=== PATIENT | male | born 1945 | race Caucasian/White ===

== ENCOUNTER 2017-08-11 20:34 | Emergency (ER) | payer MEDICARE, BC ==
[2017-08-11 20:52] VITALS: BP 115/66
[2017-08-11] MEDS ORDERED: Lidocaine 1%* 5 ML VIAL INJ ONE (22:22)
--- NOTE | 2017-08-11 22:29 | ED ---
Laceration/Wound HPI - HPI Summary HPI Summary: 72M presents with laceration to right hand. He states felt like finger might have dislocated. He denies any numbness or tingling. He believes his tetanus is up to date. He is not on blood thinners. He is right handed. He tripped on the [employer] [place] and fell on right hand and has abrasion to chin. He denies any headache or head injury. He denies any neck pain. He denies any loose teeth. He has full ROM of jaw. He has full ROM of hand. He has laceration on palm of right hand. - History of Current Complaint Stated Complaint: RT PINKY INJURY Time Seen by Provider: 08/11/17 21:15 Pain Intensity: 4 - Allergy/Home Medications Allergies/Adverse Reactions: Allergies Allergy/AdvReac Type Severity Reaction Status Date / Time Sulfamethoxazole Allergy Unknown Verified 08/11/17 20:52 w/Trimethoprim Reaction [From Bactrim] Details PMH/Surg Hx/FS Hx/Imm Hx Endocrine/Hematology History: Denies: Hx Anticoagulant Therapy, Hx Diabetes Cardiovascular History: Reports: Hx Hypertension Infectious Disease History: No Infectious Disease History: Denies: Traveled Outside the [place] in Last 30 Days - Family History Known Family History: Positive: Hypertension - Social History Alcohol Use: Occasionally Substance Use Type: Reports: None Smoking Status (MU): Unknown if Ever Smoked Review of Systems Negative: Fever Negative: Chest Pain Negative: Shortness Of Breath Positive: Other - right hand laceration All Other Systems Reviewed And Are Negative: Yes Physical Exam Triage Information Reviewed: Yes Vital Signs On Initial Exam: Initial Vitals Temp Pulse Resp BP Pulse Ox 98.8 F 80 18 115/66 96 08/11/17 20:45 08/11/17 20:45 08/11/17 20:45 08/11/17 20:45 08/11/17 20:45 Vital Signs Reviewed: Yes Appearance: Positive: Well-Appearing Skin: Positive: Warm, Dry, Other Head/Face: Positive: Normal Head/Face Inspection Eyes: Positive: Normal, EOMI, SAUL, Conjunctiva Clear ENT: Positive: Normal ENT inspection, Pharynx normal, TMs normal Dental: Positive: Other - full ROM jaw. Negative: Dental Fracture @ Respiratory/Lung Sounds: Positive: Clear to Auscultation, Breath Sounds Present Cardiovascular: Positive: Normal, RRR Abdomen Description: Positive: Nontender, Soft Bowel Sounds: Positive: Present Musculoskeletal: Positive: Strength/ROM Intact - right hand, Other - good pulses , sensation grossly intact Neurological: Positive: Sensory/Motor Intact, Alert, Oriented to Person Place, Time, CN Intact II-III Procedures - Laceration/Wound Repair 1 Location: Other - right hand laceration Description: Linear Length, Depth and Shape: 3cm by 1/2cm Irrigated w/ Saline (ccs): 100 Closure: Single Layer Number of Sutures: 4 Sterile Dressing Applied?: Yes - telfa, foam finger splint and srikanth Diagnostics - Vital Signs Vital Signs Temp Pulse Resp BP Pulse Ox 08/11/17 20:45 98.8 F 80 18 115/66 96 - Laboratory Lab Statement: Any lab studies that have been ordered have been reviewed, and results considered in the medical decision making process. - Radiology hand Xray Interpretation: No Acute Changes Radiology Interpretation Completed By: Radiologist Laceration Repair Course/Dx - Course Course Of Treatment: 72M presents with laceration to right hand. He states felt like finger might have dislocated. He denies any numbness or tingling. He believes his tetanus is up to date. He is not on blood thinners. He is right handed. He tripped on the [place] court and fell on right hand and has abrasion to chin. He denies any headache or head injury. He denies any neck pain. He denies any loose teeth. He has full ROM of jaw. He has full ROM of hand. He has laceration on palm of right hand. on exam has 3cm by 1/2cm laceration of right palm. placed 4 suture in area after cleaning, normal xray. no evidence of tendon damage. placed pinky in splint so that laceration does not open. patient understand and agrees with plan. - Differential Dx Differental Diagnoses: Abrasion, Avulsion, Laceration - Clinical Impression Provider Diagnoses: Laceration of right hand Discharge - Discharge Plan Condition: Good Disposition: HOME Patient Education Materials: Care For Your Stitches (ED) Referrals: Elvin Leavitt MD [Primary Care Provider] - Peter Otoole MD [Medical Doctor] - Additional Instructions: Keep area in splint, change dressing once a day Keep area clean and dry for 24 hours Take Tylenol or ibuprofen for pain every 6 hours Return to ED or primary for suture removal in 10-14 days Follow up with ortho if no improvement Return to ED if develop signs of infection such as fever, spreading redness, or pus formation
--- NOTE | 2017-08-12 07:37 | RAD ---
INDICATION: Right hand injury. TECHNIQUE: 4 views of the right hand were obtained. FINDINGS: The bones are normal alignment. Soft tissue swelling is noted along the medial aspect of the hand adjacent to the fifth metacarpal. No fracture is seen. Joint spaces appear maintained. IMPRESSION: SOFT TISSUE INJURY, NO FRACTURE IS SEEN.
== END 2017-08-11 23:08 | disposition home or self-care (01) ==
LOC: ED 20:34
DX: S61.411A Laceration without foreign body of right hand, initial encounter (principal); W01.0XXA Fall on same level from slipping, tripping and stumbling without subsequent striking against object, initial encounter; Y92.312 Tennis court as the place of occurrence of the external cause; I10 Essential (primary) hypertension
CPT/HCPCS: 12002; 99282

== ENCOUNTER 2019-08-30 14:39 | Emergency (ER) | payer MEDICARE, BC ==
[2019-08-30 14:55] VITALS: BP 163/78
--- NOTE | 2019-08-30 15:15 | UC ---
Abdominal Pain Male HPI - HPI Summary HPI Summary: 74-year-old male comes in with a chief complaint of right lower quadrant abdominal pain. Patient woke up this morning at 7 AM with a 6 out of 10 right lower quadrant abdominal pain. He has had no appetite since that time. No fevers measured. Pain is decreased now to about a 2 out of 10 but is still present. Reports normal urination this morning. Denies any flank pain. No prior abdominal surgeries other than a inguinal hernia repair years ago. Head normally formed stools this morning although there are smaller than usual. About 2 days ago he had intermittent right lower quadrant pain that came and went on its own. - History of Current Complaint Chief Complaint: UCAbdominalPain Stated Complaint: ABDOMINAL PAIN Time Seen by Provider: 08/30/19 14:51 Pain Intensity: 2 - Allergies/Home Medications Allergies/Adverse Reactions: Allergies Allergy/AdvReac Type Severity Reaction Status Date / Time sulfamethoxazole Allergy See Comment Verified 08/30/19 14:56 [From Bactrim] trimethoprim [From Bactrim] Allergy See Comment Verified 08/30/19 14:56 Home Medications: Home Medications Acetaminophen [Tylophen] 1,000 mg PO ONCE PRN 08/30/19 [History Confirmed ] PMH/Surg Hx/FS Hx/Imm Hx Previously Healthy: Yes - BPH Other History Of: Negative For: Anticoagulant Therapy - Surgical History Surgical History: Yes Surgery Procedure, Year, and Place: hernia repair. finger repair - Family History Known Family History: Positive: Hypertension - Social History Alcohol Use: Daily Substance Use Type: None Smoking Status (MU): Former Smoker Amount Used/How Often: pipe smoking in college Review of Systems All Other Systems Reviewed And Are Negative: Yes Constitutional: Positive: Other - SEE HPI Skin: Positive: Negative Eyes: Positive: Negative ENT: Positive: Negative Respiratory: Positive: Negative Cardiovascular: Positive: Negative Gastrointestinal: Positive: Abdominal Pain, Nausea Genitourinary: Positive: Negative Motor: Positive: Negative Neurovascular: Positive: Negative Musculoskeletal: Positive: Negative Neurological: Positive: Negative Psychological: Positive: Negative Is Patient Immunocompromised?: No Physical Exam Triage Information Reviewed: Yes Appearance: Well-Appearing, No Pain Distress, Well-Nourished Vital Signs: Initial Vital Signs Temp 99.3 F 08/30/19 14:48 Pulse 71 08/30/19 14:48 Resp 18 08/30/19 14:48 BP 163/78 08/30/19 14:48 Pulse Ox 99 08/30/19 14:48 Vital Signs Reviewed: Yes Eye Exam: Normal Eyes: Positive: Conjunctiva Clear Neck: Positive: Supple Respiratory: Positive: Lungs clear, Normal breath sounds, No respiratory distress Cardiovascular: Positive: RRR Abdomen Description: Positive: Other: - Tender to palpation right lower quadrant. The rest the abdomen is soft and nontender. Negative heel strike negative obturator.. Negative: CVA Tenderness (R), CVA Tenderness (L) Musculoskeletal: Positive: Strength Intact, ROM Intact Neurological: Positive: Alert, Muscle Tone Normal Psychological: Positive: Age Appropriate Behavior Skin Exam: Normal Abd Pain Male Course/Dx - Course Course Of Treatment: Patient is tender in the right lower quadrant of his abdomen. I recommended further evaluation emergency the patient will go by POV. - Differential Dx/Clinical Impression Provider Diagnosis: Right lower quadrant abdominal pain Discharge ED - Sign-Out/Discharge Documenting (check all that apply): Patient Departure All imaging exams completed and their final reports reviewed: No Studies - Discharge Plan Condition: Stable Disposition: HOME-RECOMMEND TO ED Patient Education Materials: Acute Abdominal Pain (ED) Referrals: Elvin Leavitt MD [Primary Care Provider] - Additional Instructions: GO DIRECTLY TO THE EMERGENCY DEPARTMENT FOR FURTHER EVALUATION OF YOUR RIGHT LOWER ABDOMINAL PAIN. - Billing Disposition and Condition Condition: STABLE Disposition: Home-Recommend to ED
== END 2019-08-30 15:20 | disposition home health service (06) ==
LOC: UCEAST 14:39
DX: R10.31 Right lower quadrant pain (principal); R11.0 Nausea; Z87.891 Personal history of nicotine dependence; Z88.2 Allergy status to sulfonamides; Z88.1 Allergy status to other antibiotic agents
CPT/HCPCS: 99212; G0463

== ENCOUNTER 2019-08-30 15:43 | Emergency (ER) | payer MEDICARE, BC ==
[2019-08-30 17:49] LABS: ABS Eosinophils 0.1 10^3/ul (0-0.6); ABS Lymphocytes 1.1 10^3/ul (1.0-4.8); ABS Monocytes 0.5 10^3/ul (0-0.8); Eosinophil % 1.2 %; Hematocrit 43 % (42-52); Hemoglobin 14.7 g/dL (14.0-18.0); Lymphocyte % 16.3 %; Mean Corpuscular HGB Conc 34 g/dL (31-36); Mean Corpuscular Hemoglobin 33 pg (27-31); Mean Corpuscular Volume 98 fL (80-94); Mean Platelet Volume 8.1 fL (7.4-10.4); Nucleated Red Blood Cells % 0.1; Platelet Count 221 10^3/uL (150-450); Red Blood Count 4.43 10^6 /uL (4.18-5.48); Red Cell Distribution Width 14 % (10-15); White Blood Count 6.7 10^3/uL (3.5-10.8)
[2019-08-30 18:00] LABS: Urine Appearance Clear; Urine Bilirubin Negative (Negative); Urine Blood 2+ (Negative); Urine Color Yellow; Urine Glucose Negative (Negative); Urine Ketones Negative (Negative); Urine Nitrite Negative (Negative); Urine Protein Negative (Negative); Urine Specific Gravity 1.016 (1.010-1.030); Urine Urobilinogen Negative (Negative)
[2019-08-30 18:03] LABS: Urine Bacteria Absent (Absent); Urine Red Blood Cell 3+(>10/hpf) (Absent); Urine White Blood Cell Trace(0-5/hpf) (Absent)
[2019-08-30 18:11] LABS: ALT 19 U/L (7-52); AST 16 U/L (13-39); Albumin 4.2 g/dL (3.2-5.2); Albumin/Globulin Ratio 1.6 (1-3); Alkaline Phosphatase 61 U/L (34-104); Anion Gap 6 mmol/L (2-11); BUN/Creatinine Ratio 12.1 (8-20); Blood Urea Nitrogen 12 mg/dL (6-24); C Reactive Protein < 1.00 mg/L (<8.01); CO2 Carbon Dioxide 29 mmol/L (22-32); Calcium 9.2 mg/dL (8.6-10.3); Chloride 105 mmol/L (101-111); EGFR African American 89.2 (>60); EGFR Non-African American 73.7 (>60); Globulin 2.6 g/dL (2-4); Glucose 101 mg/dL (70-100); Potassium 3.8 mmol/L (3.5-5.0); Sodium 140 mmol/L (135-145); Total Protein 6.8 g/dL (6.4-8.9)
--- NOTE | 2019-08-30 18:16 | ED ---
Abdominal Pain/Male - HPI Summary HPI Summary: This patient is a 74 year old male accompanied by his presenting to [facility] from [facility] with a chief complaint of RLQ pain to rule out appendicitis since 2 days ago. He reports nausea. He states the pain has increased in severity since arriving to the ED. He states he first noticed a discomfort when he woke up at night and coudl not quite pinpoint it. He states he noticed some testicular discomfort over the last couple days as well. He does not take any home medications. Pt denies any fever, chills, erythema of eyes, sore throat, CP, SOB , cough, vomiting, dysuria, hematuria, myalgia, edema, rash, or dizziness. - History of Current Complaint Chief Complaint: EDAbdPain Stated Complaint: LOWER ABDOMINAL PAIN PER PT Time Seen by Provider: 08/30/19 17:55 Hx Obtained From: Patient Onset/Duration: Lasting Hours Pain Intensity: 4 Pain Scale Used: 0-10 Numeric Location: Discrete At: RLQ - Allergies/Home Medications Allergies/Adverse Reactions: Allergies Allergy/AdvReac Type Severity Reaction Status Date / Time sulfamethoxazole Allergy See Comment Verified 08/30/19 15:48 [From Bactrim] trimethoprim [From Bactrim] Allergy See Comment Verified 08/30/19 15:48 PMH/Surg Hx/FS Hx/Imm Hx Endocrine/Hematology History: Denies: Hx Anticoagulant Therapy, Hx Diabetes Cardiovascular History: Denies: Hx Hypertension - pt denies - Surgical History Surgery Procedure, Year, and Place: hernia repair. finger repair Infectious Disease History: No Infectious Disease History: Denies: Traveled Outside the [place] in Last 30 Days - Family History Known Family History: Positive: Hypertension - Social History Alcohol Use: Daily Substance Use Type: Reports: None Smoking Status (MU): Former Smoker Amount Used/How Often: pipe smoking in college Review of Systems Negative: Fever, Chills Negative: Erythema Negative: Sore Throat Negative: Chest Pain Negative: Shortness Of Breath, Cough Positive: Abdominal Pain, Nausea. Negative: Vomiting Negative: dysuria, hematuria Negative: Myalgia, Edema Negative: Rash Neurological: Other - Neg: Dizziness All Other Systems Reviewed And Are Negative: No Physical Exam - Summary Physical Exam Summary: Constitutional: Well-developed, Well-nourished, Alert. (-) Distressed Skin: Warm, Dry HENT: Normocephalic; Atraumatic Eyes: Conjunctiva normal Neck: Musculoskeletal ROM normal neck. (-) JVD, (-) Stridor, (-) Tracheal deviation Cardio: Rhythm regular, rate normal, Heart sounds normal; Intact distal pulses; Radial pulses are 2+ and symmetric. (-) Murmur Pulmonary/Chest wall: Effort normal. (-) Respiratory distress, (-) Wheezes, (-) Rales Abd: Soft, (-) tenderness, (-) Distension, (-) Guarding, (-) Rebound Musculoskeletal: (-) Edema Lymph: (-) Cervical adenopathy Neuro: Alert, Oriented x3 Psych: Mood and affect Normal Triage Information Reviewed: Yes Vital Signs On Initial Exam: Initial Vitals Temp Pulse Resp BP Pulse Ox 97.5 F 78 16 153/80 98 08/30/19 15:45 08/30/19 15:45 08/30/19 15:45 08/30/19 15:45 08/30/19 15:45 Vital Signs Reviewed: Yes Procedures - Sedation Patient Received Moderate/Deep Sedation with Procedure: No Diagnostics - Vital Signs Vital Signs Temp Pulse Resp BP Pulse Ox 08/30/19 15:45 97.5 F 78 16 153/80 98 - Laboratory Lab Results: Lab Results 08/30/19 08/30/19 Range/Units 17:37 17:50 WBC 6.7 (3.5-10.8) 10^3/uL RBC 4.43 (4.18-5.48) 10^6 /uL Hgb 14.7 (14.0-18.0) g/dL Hct 43 (42-52) % MCV 98 H (80-94) fL MCH 33 H (27-31) pg MCHC 34 (31-36) g/dL RDW 14 (10-15) % Plt Count 221 (150-450) 10^3/uL MPV 8.1 (7.4-10.4) fL Neut % (Auto) 74.7 % Lymph % (Auto) 16.3 % [place] % (Auto) 7.3 % Eos % (Auto) 1.2 % Baso % (Auto) 0.5 % Absolute Neuts (auto) 5.0 (1.5-7.7) 10^3/ul Absolute Lymphs (auto) 1.1 (1.0-4.8) 10^3/ul Absolute Monos (auto) 0.5 (0-0.8) 10^3/ul Absolute Eos (auto) 0.1 (0-0.6) 10^3/ul Absolute Basos (auto) 0.0 (0-0.2) 10^3/ul Absolute Nucleated RBC 0.0 10^3/ul Nucleated RBC % 0.1 Urine Color Yellow Urine Appearance Clear Urine pH 5.0 (5-9) Ur Specific [place] 1.016 (1.010-1.030) Urine Protein Negative (Negative) Urine Ketones Negative (Negative) Urine Blood 2+ A (Negative) Urine Nitrate Negative (Negative) Urine Bilirubin Negative (Negative) Urine Urobilinogen Negative (Negative) Ur Leukocyte Esterase Negative (Negative) Urine Glucose Negative (Negative) Result Diagrams: 08/30/19 17:37 08/30/19 17:37 Lab Statement: Any lab studies that have been ordered have been reviewed, and results considered in the medical decision making process. Re-Evaluation - Re-Evaluation First Eval Re-Evaluation Time: 22:31 Comment: 2230 - CT ABD/PEL was reviewed with patient. Patient to be discharged to home with prescriptions for Flomax and pain medications. He will follow up with urologist. He is agreeable with this plan. Abdominal Pain Male Course/Dx - Course Course Of Treatment: This patient is a 74 year old male presenting to [facility] from [facility] with a chief complaint of RLQ pain to rule out appendicitis since 12 hours ago. Labs showed Urine Blood 2+ A and Urine RBC 3+ A. Patient will be signed out to Dr. Shultz pending CT Abd/Pel impression. - Diagnoses Provider Diagnoses: Right kidney stone Discharge ED - Sign-Out/Discharge Documenting (check all that apply): Sign-Out Patient Signing out patient TO: Rosalba Shultz - Pend CT abd/pel impression at shift change 2200 - Discharge Plan Condition: Stable Disposition: HOME Prescriptions: Oxycodone HCl/Acetaminophen [Percocet 5-325 mg Tablet] 1 each PO Q4HR #20 tablet MDD 6 Tamsulosin CAP* [Flomax CAP*] 0.4 mg PO DAILY #10 cap Patient Education Materials: Kidney Stones (ED) Referrals: Ankur Ball MD [Medical Doctor] - 3 Days Additional Instructions: PLEASE RETURN TO ED FOR ANY NEW OR WORSENING SYMPTOMS. PLEASE FOLLOW UP WITH YOUR UROLOGIST WITHIN THREE DAYS. - Billing Disposition and Condition Condition: STABLE Disposition: Home - Attestation Statements Document Initiated by Jenny: Yes Documenting Scribe: Denny Dunaway Provider For Whom Scribe is Documenting (Include Credential): Caleb Prince MD Scribe Attestation: IDenny, scribed for Caleb Prince MD on 09/01/19 at 1032. Scribe Documentation Reviewed: Yes Provider Attestation: The documentation as recorded by the Denny malave accurately reflects the service I personally performed and the decisions made by me, Caleb Prince MD Status of Scribe Document: Viewed
[2019-08-30] MEDS: Ketorolac INJ* 30 MG/ML 1 ML VIAL IV PUSH ONE (19:56)
[2019-08-30] MEDS: NS 0.9% 1000 ML** 1,000 ML IV ONE (19:57)
[2019-08-30] MEDS: Ondansetron INJ* 2 MG/ML VIAL IV ONE (19:57)
[2019-08-30] MEDS: Iohexol 300* (CONTRAST) 10 ML SDV IV ONE (20:08)
--- NOTE | 2019-08-30 22:38 | ED ---
Progress - Progress Note Progress Note: Patient is received as a sign out from Dr. Prince to Dr. Shultz at [address] ABD/PEL. CT ABD/PEL IMPRESSION: 1. No appendicitis. 2. 4 mm mid right ureteral calculus with mild right hydronephrosis and perinephric stranding. Suggestion right renal pelvis urothelial enhancement which could represent pyelitis. No discrete mass, but urothelial neoplasia cannot be excluded. Consider urologic evaluation and correlation with UA. 3. Diverticulosis coli. No diverticulitis. 4. Enlarged prostate gland. 5. Coronary artery disease. THIS REPORT WAS REVIEWED BY ED PHYSICIAN. 2230 - CT ABD/PEL was reviewed with patient. Patient to be discharged to home with prescriptions for Flomax and pain medications. He will follow up with urologist. He is agreeable with this plan. Re-Evaluation - Re-Evaluation First Eval Re-Evaluation Time: 22:31 Comment: 2230 - CT ABD/PEL was reviewed with patient. Patient to be discharged to home with prescriptions for Flomax and pain medications. He will follow up with urologist. He is agreeable with this plan. Course/Dx - Course Course Of Treatment: During ED course, patient received Flomax 0.4 mg PO. - Diagnoses Provider Diagnoses: Right kidney stone Discharge ED - Sign-Out/Discharge Documenting (check all that apply): Patient Departure - discharge - Discharge Plan Condition: Stable Disposition: HOME Prescriptions: Oxycodone HCl/Acetaminophen [Percocet 5-325 mg Tablet] 1 each PO Q4HR #20 tablet MDD 6 Tamsulosin CAP* [Flomax CAP*] 0.4 mg PO DAILY #10 cap Patient Education Materials: Kidney Stones (ED) Referrals: Ankur Ball MD [Medical Doctor] - 3 Days Additional Instructions: PLEASE RETURN TO ED FOR ANY NEW OR WORSENING SYMPTOMS. PLEASE FOLLOW UP WITH YOUR UROLOGIST WITHIN THREE DAYS. - Billing Disposition and Condition Condition: STABLE Disposition: Home - Attestation Statements Document Initiated by Scribe: Yes Documenting Scribe: MARITZA CAGLE Provider For Whom Scribe is Documenting (Include Credential): VIRGIL SHULTZ MD Scribe Attestation: MARITZA Marks, scribed for VIRGIL SHULTZ MD on 08/31/19 at 0054. Scribe Documentation Reviewed: Yes Provider Attestation: The documentation as recorded by the scribe, MARITZA CAGLE accurately reflects the service I personally performed and the decisions made by me, VIRGIL SHULTZ MD Status of Delmiibbharti Document: Viewed
[2019-08-30] MEDS: Tamsulosin CAP* 0.4 MG PO ONE (23:26)
[2019-08-30 23:55] VITALS: BP 127/100
== END 2019-08-30 23:57 | disposition home or self-care (01) ==
LOC: ED 15:43
DX: N13.2 Hydronephrosis with renal and ureteral calculous obstruction (principal); K57.30 Diverticulosis of large intestine without perforation or abscess without bleeding; N40.0 Benign prostatic hyperplasia without lower urinary tract symptoms; I25.10 Atherosclerotic heart disease of native coronary artery without angina pectoris; Z87.891 Personal history of nicotine dependence; Z88.1 Allergy status to other antibiotic agents; Z88.2 Allergy status to sulfonamides
CPT/HCPCS: 36415; 74177; 80053; 81003; 81015; 83605; 83690; 85025; 86140; 87086; 96361; 96374; 96375; 99284; J1885; J2405; Q9967

== ENCOUNTER 2022-07-16 16:20 | Inpatient (IN) ==
[2022-07-16] MEDS ORDERED: TENECTEPLASE 50 MG VIAL KIT 5 MG/ML (reconstituted) IV ONE (16:38)
[2022-07-16 17:09] LABS: ABS Eosinophils 0.2 10^3/ul (0-0.6); ABS Monocytes 0.4 10^3/ul (0-0.8); ABS Neutrophils 3.7 10^3/ul (1.5-7.7); Eosinophil % 3.2 %; Hematocrit 42 % (42-52); Hemoglobin 14.1 g/dL (14.0-18.0); Lymphocyte % 18.6 %; Mean Corpuscular HGB Conc 33 g/dL (31-36); Mean Corpuscular Hemoglobin 32 pg (27-31); Mean Corpuscular Volume 96 fL (80-94); Mean Platelet Volume 8.4 fL (7.4-10.4); Platelet Count 211 10^3/uL (150-450); Red Blood Count 4.39 10^6 /uL (4.18-5.48); Red Cell Distribution Width 14 % (10-15); White Blood Count 5.3 10^3/uL (3.5-10.8)
[2022-07-16 17:20] LABS: Activated Partial Thrombo Time 30.4 seconds (26.0-38.0); INR 0.99 (0.89-1.11)
[2022-07-16 17:56] LABS: Albumin 3.9 g/dL (3.2-5.2); Albumin/Globulin Ratio 1.7 (1-3); Calcium 8.9 mg/dL (8.6-10.3); Globulin 2.3 g/dL (2-4); HDL Cholesterol 39.1 mg/dL; Potassium 4.1 mmol/L (3.5-5.0); Total Bilirubin 0.5 mg/dL (0.2-1.0); Total Protein 6.2 g/dL (6.4-8.9); eGFR CKD-EPI 72.7 (>60)
[2022-07-16] MEDS ORDERED: Labetalol IV 5 MG/ML 20 ml VIAL IV PUSH PRN (18:06)
[2022-07-16 19:25] LABS: Urine Appearance Clear; Urine Bilirubin Negative (Negative); Urine Blood Negative (Negative); Urine Color Straw; Urine Glucose Negative (Negative); Urine Ketones Negative (Negative); Urine Nitrite Negative (Negative); Urine Protein Negative (Negative); Urine Specific Gravity 1.049 (1.002-1.030); Urine Urobilinogen Negative (Negative)
[2022-07-17 04:29] LABS: ABS Eosinophils 0.2 10^3/ul (0-0.6); ABS Lymphocytes 1.3 10^3/ul (1.0-4.8); ABS Monocytes 0.6 10^3/ul (0-0.8); ABS Neutrophils 4.3 10^3/ul (1.5-7.7); Eosinophil % 3.3 %; Hematocrit 40 % (42-52); Hemoglobin 13.5 g/dL (14.0-18.0); Lymphocyte % 20.3 %; Mean Corpuscular HGB Conc 34 g/dL (31-36); Mean Corpuscular Hemoglobin 32 pg (27-31); Mean Corpuscular Volume 96 fL (80-94); Platelet Count 193 10^3/uL (150-450); Red Blood Count 4.22 10^6 /uL (4.18-5.48); Red Cell Distribution Width 15 % (10-15); White Blood Count 6.4 10^3/uL (3.5-10.8)
[2022-07-17 04:58] LABS: Calcium 8.6 mg/dL (8.6-10.3); Magnesium 2.2 mg/dL (1.9-2.7); Phosphorus 3.5 mg/dL (2.5-5.0); eGFR CKD-EPI 87.4 (>60)
[2022-07-17] MEDS: Aspirin EC 81 mg TAB.EC (enteric coated) PO SCH (19:58)
[2022-07-18 06:36] LABS: ABS Eosinophils 0.2 10^3/ul (0-0.6); ABS Lymphocytes 1.4 10^3/ul (1.0-4.8); ABS Monocytes 0.6 10^3/ul (0-0.8); ABS Neutrophils 3.8 10^3/ul (1.5-7.7); Hematocrit 42 % (42-52); Hemoglobin 14.3 g/dL (14.0-18.0); Lymphocyte % 23.1 %; Mean Corpuscular HGB Conc 34 g/dL (31-36); Mean Corpuscular Hemoglobin 33 pg (27-31); Mean Corpuscular Volume 96 fL (80-94); Mean Platelet Volume 8.2 fL (7.4-10.4); Platelet Count 199 10^3/uL (150-450); Red Blood Count 4.37 10^6 /uL (4.18-5.48); Red Cell Distribution Width 14 % (10-15); White Blood Count 6.1 10^3/uL (3.5-10.8)
[2022-07-18 06:50] LABS: Calcium 9.1 mg/dL (8.6-10.3); Magnesium 2.3 mg/dL (1.9-2.7); Phosphorus 3.5 mg/dL (2.5-5.0); Potassium 4.2 mmol/L (3.5-5.0); eGFR CKD-EPI 75.2 (>60)
[2022-07-18] MEDS: Aspirin EC 81 mg TAB.EC (enteric coated) PO SCH (08:15)
[2022-07-18 15:36] VITALS: BP 131/73
== END 2022-07-18 18:45 | disposition home or self-care (01) | DRG 62 ==
LOC: ED 16:20 → EDHOLD 18:02 → SUATTDRO 18:02 → ICU 21:08 → MEDTELE 07-17 18:21
PROVIDERS: ADMIT Internal Medicine; ATTEND Internal Medicine